=== PATIENT | female | born 1970 | race Asian ===

== ENCOUNTER 2017-11-13 15:36 | Inpatient (IN) | payer BC ==
[~2017-11-13] VITALS: Ht 162.6 cm; Wt 59.5 kg
--- NOTE | 2017-11-13 15:40 | NUR ---
AAOX3, BIB [facility] FROM URGENT CARE,C/O WEAK/DIZZY X 1 1/2 HRS, HYPERVENTILATING AND C/O TINGLING SENSATION OF HER HANDS. Skin is warm and dry. Resp is even and unlabored with nad noted. Patient states that she felt her left side weak around 2pm today. Face is symmetrical. Bilateral strong and equal firebrick layer. Neuro is intact. Awaiting MD for eval.
[2017-11-13] MEDS ORDERED: AMLO5TAB2 PO (15:55)
[2017-11-13] MEDS ORDERED: IV NS 0.9% 1,000 ML BAG IV ONE (16:30)
[2017-11-13 16:35] LABS: BASOPHILS % (AUTO) 0.4 % (0.0-2.0); EOSINOPHILS % (AUTO) 0.8 % (0.0-6.0); HEMATOCRIT 32 % (33-45); HEMOGLOBIN 9.9 g/dL (11.5-14.8); LYMPHOCYTES # (AUTO) 1.3 /CMM (0.8-4.8); LYMPHOCYTES % (AUTO) 18.2 % (20.0-44.0); MEAN CORPUSCULAR HEMOGLOBIN 22 PG (26.0-33.0); MEAN CORPUSCULAR HGB CONC 32 g/dl (31.0-36.0); MEAN CORPUSCULAR VOLUME 70 fL (82-100); MONOCYTES # (AUTO) 0.5 /CMM (0.1-1.30); MONOCYTES % (AUTO) 6.3 % (2.0-12.0); NEUTROPHILS # (AUTO) 5.3 /CMM (1.8-8.9); NEUTROPHILS % (AUTO) 74.3 % (43.0-81.0); PLATELET COUNT (AUTO) 475 /CMM (150-450); RDW COEFFICIENT OF VARIATION 17.4 (11.5-15.0); WHITE BLOOD COUNT (AUTO) 7.2 K/uL (4.3-11.0)
--- NOTE | 2017-11-13 16:36 | NUR ---
Patient transported for CT.
[2017-11-13] MEDS ORDERED: IOHEXOL-350 100 ML VIAL IV ONE (16:40)
[2017-11-13] MEDS ORDERED: CT SWABBABLE VALVE TRANS SET 1 EA INFUS.SET MC ONE (16:40)
[2017-11-13] MEDS ORDERED: IV NS 0.9% 250 ML IV ONE (16:41)
[2017-11-13 16:44] LABS: CALCIUM, SERUM 9.1 mg/dL (8.5-10.1); CARBON DIOXIDE 24 mmol/L (21-32); CHLORIDE 107 mmol/L (98-107); CREATININE 0.8 mg/dL (0.6-1.3); GLUCOSE 111 mg/dL (74-106); POTASSIUM 3.3 mmol/L (3.5-5.1); SODIUM SERUM 138 mmol/L (136-145); UREA NITROGEN, BLOOD 8 mg/dL (7-18)
[2017-11-13 16:51] LABS: INR 0.94 (0.85-1.15)
[2017-11-13 16:52] LABS: TROPONIN I < 0.017 ng/mL (0.00-0.056)
[2017-11-13 16:53] LABS: ALANINE AMINOTRANSFERASE 18 U/L (12-78); ALBUMIN 3.8 g/dL (3.4-5.0); ALKALINE PHOSPHATASE 64 U/L (46-116); ASPARTATE AMINOTRANSFERASE 15 U/L (15-37); BILIRUBIN,DIRECT 0.1 mg/dL (0.0-0.2); BILIRUBIN,TOTAL 0.3 mg/dL (0.2-1.0); TOTAL PROTEIN, SERUM 7.8 g/dL (6.4-8.2)
[2017-11-13 16:55] LABS: APPEARANCE,URINE Clear (CLEAR); BILIRUBIN,URINE Negative (NEGATIVE); BLOOD, URINE Negative Ery/uL (NEGATIVE); COLOR,URINE Yellow (YELLOW); KETONES,URINE Trace (NEGATIVE); LEUKOCYTE ESTERASE ,URINE Negative (NEGATIVE); NITRITE, URINE Negative (NEGATIVE); PROTEIN,URINE Negative (NEGATIVE); UGLUCOSE Negative (NEGATIVE); UROBILINOGEN,URINE 0.2 EU/dL (0.2)
[2017-11-13 16:59] LABS: BACTERIA,URINE Few /HPF (None Seen); RBC,URINE 0-2 /HPF (0-2); SQUAMOUS EPITHELIAL CELL,UR Moderate /HPF (None Seen); WBC,URINE 0-2 /HPF (0-3)
--- NOTE | 2017-11-13 17:50 | NUR ---
Carlyle ASSOCIATE SCHOOL PSYCHOLOGIST at BS for eval.
[2017-11-13] MEDS ORDERED: POTASSIUM CHLORIDE 20 MEQ TAB.PRT.SR PO ONE ×2 (18:00→18:01)
[2017-11-13] MEDS ORDERED: IV NS 0.9% 1,000 ML IV PRN (18:14)
[2017-11-13] MEDS ORDERED: MAG HYDROX/AL HYDROX/SIMETH 30 ML UDC PO PRN ×2 (18:30→19:30)
[2017-11-13] MEDS ORDERED: ONDANSETRON HCL/PF 4 MG/2 ML VIAL IVP PRN ×2 (18:30→19:30)
[2017-11-13] MEDS ORDERED: ACETAMINOPHEN 325 MG TABLET PO PRN ×2 (18:30→19:30)
[2017-11-13] MEDS ORDERED: ENOXAPARIN SODIUM 40 MG/0.4 ML DISP.SYRIN SQ SCH ×2 (18:30→20:00)
[2017-11-13] MEDS ORDERED: HYDROCODONE/APAP 5/325MG 1 EACH TABLET PO PRN ×2 (18:30→19:30)
[2017-11-13] MEDS ORDERED: MAGNESIUM HYDROXIDE 30 ML UDC PO PRN ×2 (18:30→19:30)
[2017-11-13] MEDS ORDERED: TEMAZEPAM 15 MG CAPSULE PO PRN ×2 (18:30→19:30)
--- NOTE | 2017-11-13 18:30 | NUR ---
Patient is resting comfortably in bed with eyes closed. Easily aroused. VSS
--- NOTE | 2017-11-13 18:33 | NUR ---
PT IS ASSIGNED TO [facility]#: [id number], DX: VERTIGO, AND ACCEPTING: MARY CHASE
[2017-11-13] MEDS ORDERED: VALS160T2 PO (18:40)
--- NOTE | 2017-11-13 19:19 | NUR ---
Report given CAT[facility] for [facility] Tele [id number]
[2017-11-13 19:40] VITALS: BP 141/98
--- NOTE | 2017-11-13 19:40 | NUR ---
LICENSED CHEMICAL SPRAY TECHNICIAN NOTES RECEIVED PT FROM ER VIA [facility]. PT ABLE TO WALK FROM OUTSIDE HER ASSIGNED ROOM TO HER BED, AND ABLE TO LAY DOWN IN BED SAFELY AND NO DIZZINESS AND NO NAUSEA NOTED. PT IS A/O X 4, VERBALLY RESPONSIVE. NO DISTRESS, NO SOB NOTED. RESPIRATION IS EVEN AND UNLABORED. SARAH AT BEDSIDE. IV SITE ON LAC G#20 AND RAC G# 18 INTACT AND PATENT, FLUSHED WITH NS. NO S/S OF INFILTRATION NOTED. SAFETY PRECAUTIONS OBSERVED. SKIN IS INTACT. DENIES ANY PAIN OR DISCOMFORT AT THIS TIME. ALL NEEDS ATTENDED AND MET. CALL LIGHT WITHIN REACH. WILL CONT TO MONITOR.
[2017-11-13 20:00] VITALS: BP 145/104
--- NOTE | 2017-11-13 20:50 | NUR ---
CLARIFIED DIET ORDER WITH MARY CHASE NP , WITH N.O FOR CARDIAC DIET NOTED AND CARRIED OUT.
[2017-11-13] MEDS: IV NS 0.9% 1,000 ML IV PRN (21:15)
[2017-11-14] VITALS: BP 156/91
[2017-11-14 04:00] VITALS: BP_SYST 162; BP_SYST 163; BP_DIAS 101
--- NOTE | 2017-11-14 04:00 | NUR ---
PT'S BP : 163/101 at this time, pt denies any chest pain, dizziness, head ache or any pain at this time. Per pt she usually take her bp meds at 9am, Pt remains a/o x 4 verbally responsive. Will cont to monitor.
[2017-11-14 04:30] VITALS: BP 140/83
--- NOTE | 2017-11-14 04:30 | NUR ---
rechecked pt's bp : 140/83 , hr : 51 at this time. pt resting comfortably in bed as pt verbalized . call light within reach. will cont to monitor.
--- NOTE | 2017-11-14 06:56 | NUR ---
UNIFORM FORCE CAPTAIN NOTES PT IN BED, ASLEEP AT THIS TIME, AROUSES EASILY. PT IS A/O X 4, VERBALLY RESPONSIVE. NO DISTRESS, NO SOB NOTED. RESPIRATION IS EVEN AND UNLABORED. IV SITE ON LAC G#20 INTACT AND PATENT, FLUSHED WITH NS. NO S/S OF INFILTRATION NOTED. IVF INFUSING WELL. SAFETY PRECAUTIONS OBSERVED. SKIN IS INTACT. NO C/O ANY PAIN OR DISCOMFORT AT THIS TIME. ALL NEEDS ATTENDED AND MET. SAFETY PRECAUTIONS OBSERVED. CALL LIGHT WITHIN REACH. WILL CONT TO MONITOR.
--- NOTE | 2017-11-14 07:10 | NUR ---
RN OPENING/TELE NOTES RECEIVED PT. IN BED A&OX4. BREATHING UNLABORED, AND EVENLY ON ROOM AIR. PT. DENIES PAIN. IV FLUIDS RUNNING AT 100 ML/HR. BED IS IN LOWEST, AND LOCKED POSITION. 2 SIDE RAILS UP, AND INSTRUCTED PT. TO USE CALL LIGHT FOR ASSISTANCE.
[2017-11-14] MEDS ORDERED: PANTOPRAZOLE 40 MG TABLET.DR PO SCH ×2 (07:30)
[2017-11-14 08:00] VITALS: BP 129/80
[2017-11-14] MEDS ORDERED: AMLODIPINE BESYLATE 5 MG TABLET PO SCH (09:00)
[2017-11-14] MEDS ORDERED: VALSARTAN 40 MG TABLET PO SCH (09:00)
[2017-11-14] MEDS: IV NS 0.9% 1,000 ML IV PRN (09:06)
[2017-11-14 11:19] VITALS: BP 121/74
[2017-11-14 15:36] VITALS: BP 133/84
--- NOTE | 2017-11-14 18:30 | NUR ---
MANAGER REPORT PT. WAS DISCHARGED IN STABLE CONDITION. PT. LEFT WITH FAMILY BY PRIVATE CAR. DISCHARGE INSTRUCTIONS PROVIDED WITH EDUCATION. PT. SIGNED DISCHARGE PAPERS. BELONGINGS LIST WAS CHECKED AND SIGNED. IV, AND ID WAS REMOVED WITHOUT COMPLICATIONS. ALL QUESTIONS ANSWERED.
== END 2017-11-14 18:00 | disposition home or self-care (01) | DRG 74 ==
LOC: ER 15:47 → TELE 19:34 → MED 11-14 17:21
PROVIDERS: ADMIT Nurse Practitioner Acute Care; ATTEND Nurse Practitioner Acute Care
DX: G90.8 Other disorders of autonomic nervous system (principal); E86.0 Dehydration; E87.6 Hypokalemia; I10 Essential (primary) hypertension; D50.9 Iron deficiency anemia, unspecified; F17.210 Nicotine dependence, cigarettes, uncomplicated; F41.0 Panic disorder [episodic paroxysmal anxiety]; D32.9 Benign neoplasm of meninges, unspecified; F45.8 Other somatoform disorders; G24.4 Idiopathic orofacial dystonia
CPT/HCPCS: 36415; 70450-TC; 70496-TC; 71045-TC; 80048-TC; 80076-TC; 81000-TC; 84484-TC; 84703-TC; 85025-TC; 85730-TC; A4606; J1650; J7030; J7050; Q9967; Z7610